=== PATIENT | female | born 1995 | race Caucasian/White ===

== ENCOUNTER 2024-04-02 22:30 | Emergency (ER) | payer MEDICAID ==
[~2024-04-02 22:30] MED LIST: IBUP-974 PO
--- NOTE | 2024-04-02 22:44 | NUR ---
patient stated she will take off. PATIENT LEFT WITHOUT BEING SEEN BY DR. durán. NO FURTHER CARE PROVIDED FOR PATIENT.
== END 2024-04-02 22:44 | disposition left against medical advice (07) ==
LOC: MED 22:30
DX: S61.409A Unspecified open wound of unspecified hand, initial encounter (principal); Z53.21 Procedure and treatment not carried out due to patient leaving prior to being seen by health care provider; W45.8XXA Other foreign body or object entering through skin, initial encounter; Y93.89 Activity, other specified; Y92.89 Other specified places as the place of occurrence of the external cause; Y99.8 Other external cause status